=== PATIENT | female | born 1970 | race Caucasian/White ===

== ENCOUNTER 2019-08-02 15:44 | Outpatient (CLI) | payer MEDICARE, BC, SELFPAY ==
--- NOTE | 2019-08-02 16:04 | XR_ITS ---
WS: [id number] SHOULDER LEFT TECHNIQUE: 3 views of the left shoulder CLINICAL INFORMATION: PAIN IN LEFT SHOULDER COMPARISON: None. FINDINGS: Normal acromioclavicular joint. Normal glenohumeral joint. Acromion is normal in appearance. Normal g lenoid 6. No evidence of acute fracture dislocation. Postoperative changes lower cervical spine. XR/XR shoulder LT min 2V* [id number] IMPRESSION: Normal left shoulder.
--- NOTE | 2019-08-02 16:04 | XR_ITS ---
WS: [id number] SHOULDER RIGHT TECHNIQUE: 3 views of the right shoulder CLINICAL INFORMATION: PAIN IN RIGHT SHOULDER COMPARISON: None. FINDINGS: Normal acromioclavicular joint. Normal glenohumeral joint. Acromion is normal in appearance. Normal g lenoid. No evidence of acute fracture dislocation. Postoperative changes lower cervical spine. XR/XR shoulder RT min 2V* [id number] IMPRESSION: Normal right shoulder.
== END 2019-08-02 15:45 | disposition home or self-care (01) ==
LOC: WPI 15:50
PROVIDERS: Family Provider Family Medicine; PCP Family Medicine; Visit Provider Family Medicine
DX: M25.512 Pain in left shoulder (principal); M25.511 Pain in right shoulder
CPT/HCPCS: 73030

== ENCOUNTER 2020-03-27 17:22 | Emergency (ER) | payer MEDICARE, BC, SELFPAY ==
[2020-03-27] VITALS (7 sets, daily range): BP systolic 98–138; BP diastolic 66–76; PULSE 66–80; RESP 16–20; TEMP 36.6; O2SAT 96–98; BMI 26.5
--- NOTE | 2020-03-27 17:36 | W.ED.ABDPA2 ---
Documented by User: Gabriel Lees DO 03/30/20 06:16 HPI - Abdominal Pain General: Chief Complaint: Abdominal Pain Stated Complaint: ABD PAIN Time Seen by Provider: 03/27/20 17:25 History of Present Illness: HPI narrative: 50-year-old female comes in complaining of right flank pain that began suddenly 3 hours ago she denies any hematuria or dysuria she not had any fever sweats or chills there is been no respiratory symptoms she has known renal nephrolithiasis is never had any convert to a ureteral stone. She denies any vomiting diarrhea. She not been exposed anyone that she knows of with coverage has not had any respiratory symptoms MD elicited complaint: flank pain Quality: stabbing Radiation: suprapubic Migration to: no migration Exacerbating factors: nothing Relieving factors: nothing Associated Symptoms: Reports GI cramping; Denies coffee ground emesis, constipation, diarrhea, dyspepsia, dysuria, excessive flatus, fever(s), heartburn, hematochezia, hematuria, hematemesis, fecal incontinence, loose stools, melena, nausea, poor appetite, syncope and vomiting Review of Systems Const: Denies: fever(s) ENMT: Denies: throat pain, ear or mastoid pain, nasal discharge or nasal congestion Card: Denies: syncope Resp: Denies: dyspnea, productive cough or non-productive cough GI: Reports: GI cramping; Denies: nausea, vomiting, hematemesis, coffee ground emesis, heartburn, diarrhea, constipation, excessive flatus, fecal incontinence, hematochezia or melena : Denies: dysuria or hematuria Skin/Breast: Denies: rash or pruritus PFSH ED PFSH: Medical History (Updated 03/27/20 @ 20:43 by Alen Burciaga DO) Cervical stenosis of spinal canal Cervical vertebral fusion Chiari malformation Ectopic POTS (postural orthostatic tachycardia syndrome) Surgical History (Updated 03/27/20 @ 17:51 by Gabriel Lees DO) History of appendectomy Hx laparoscopic cholecystectomy Tubal ligation status Social History (Updated 03/27/20 @ 17:51 by Gabriel Lees DO) Smoking and tobacco status: never smoked Alcohol intake: current Alcohol intake frequency: 0-2 Drinks per Day Physical Exam Const: COMMON NORMALS: no acute distress GENERAL APPEARANCE: cooperative and comfortable ORIENTATION/CONSCIOUSNESS: Yes awake, Yes oriented to person, Yes oriented to place and Yes oriented to time HENMT: COMMON NORMALS: normocephalic, atraumatic and hearing grossly normal bilaterally HEAD & SCALP: normocephalic and atraumatic Eye: COMMON NORMALS: Equal, round and reactive pupils present, EOMs intact bilaterally, conjunctivae normal and no scleral icterus CONJUNCTIVA: Yes conjunctivae normal PUPIL: Yes Equal, round and reactive pupils present Neck/C-Spine: COMMON NORMALS: no JVD Resp: COMMON NORMALS: normal respiratory effort, No retractions, No use of accessory muscles and clear to auscultation bilaterally AUSCULTATION: clear to auscultation bilaterally Cardio: COMMON NORMALS: no JVD, regular rate, regular rhythm and No murmurs present (Cardio) RATE: regular rate RHYTHM: regular rhythm GI: COMMON NORMALS: Soft to palpation and No hepatosplenomegaly present AUSCULTATION: Yes normoactive bowel sounds PALPATION: Yes Soft to palpation, No Tenderness to palpation present (GI), No Guarding due to palpation present (GI) and Yes No hepatosplenomegaly present Extremity: COMMON NORMALS: normal to inspection, capillary refill normal, no clubbing, cyanosis or edema, no calf tenderness and no pedal edema Neuro: SENSORIUM/ORIENTATION: Yes oriented to person, Yes oriented to place and Yes oriented to time Skin: COMMON NORMALS: no rashes or lesions noted GENERAL SKIN EXAM: no rashes or lesions noted Course Vital Signs: Vital signs: Vital Signs Temperature 97.9 F 03/27/20 17:25 Pulse Rate 69 03/27/20 20:46 Respiratory Rate 16 03/27/20 20:46 Blood Pressure 116/70 03/27/20 20:46 Pulse Oximetry 96 03/27/20 20:46 MDM - Abdominal Pain MDM Narrative: Medical decision making narrative: Care turned over to Dr. Burciaga at change of shift please see his notes for final diagnosis and disposition Lab Data: Labs: Lab Results 03/27/20 03/27/20 03/27/20 Range/Units 18:00 18:00 19:43 WBC 6.4 (4.0-10.0) 10^3/ uL RBC 5.20 (4.1-5.3) 10^6/u L Hgb 15.9 H (11.5-15.3) g/dL Hct 47.6 H (37.0-47.0) % MCV 91.5 (81-99) fL MCH 30.6 (28.0-34.0) pg MCHC 33.4 (30.0-36.0) g/dL RDW 12.2 (12.1-15.1) % Plt Count 276 (130-400) 10^3/c mm MPV 10.4 (7.4-10.4) fL Neut % (Auto) 55.0 % Lymph % (Auto) 32.3 % [place] % (Auto) 8.1 % Eos % (Auto) 3.6 % Baso % (Auto) 0.8 % Neut # (Auto) 3.55 (1.8-7.7) 10^3/u L Lymph # (Auto) 2.1 (0.8-4.8) 10^3/u L [place] # (Auto) 0.5 (0.2-0.9) 10^3/u L Eos # (Auto) 0.2 (0.0-0.8) 10^3/u L Baso # (Auto) 0.1 (0.0-0.1) 10^3/u L Nucleated RBC % (a uto) 0 % Nucleated RBCs # 0.0 /100WBC Sodium 138 (136-145) mmol/L Potassium 3.8 (3.5-5.1) mmol/L Chloride 100 (98-107) mmol/L Carbon Dioxide 28 (22-29) mmol/L Anion Gap 13.8 (5-19) BUN 13 (6-20) mg/dL Creatinine 0.8 (0.5-0.9) mg/dL GFR Calculation 75.3 L (90-130) mL/min Glucose 126 H (65-115) mg/dL Calculated Osmolal ity 284 L (285-295) mOsm/k g Calcium 9.1 (8.5-10.5) mg/dL Total Bilirubin 0.4 (0.15-1.2) mg/dL AST 18 (0-32) U/L ALT 18 (0-33) U/L Alkaline Phosphata se 57 (35-105) IU/L Total Protein 7.8 (6.6-8.7) g/dL Albumin 4.8 (3.5-5.2) g/dL Globulin 3.0 (1.3-4.6) g/dL Lipase 35 (13-60) U/L Urine Color Yellow (Yellow) Urine Appearance Clear (CLEAR) Urine pH 6.5 (5-7) Ur Specific Gravit y 1.010 (1.005-1.030) Urine Protein Neg (Negative) Urine Glucose (UA) Norm (Normal) Urine Ketones Negative (Negative) Urine Blood Neg (Negative) Urine Nitrate Negative (Negative) Urine Bilirubin Neg (NEGATIVE) Urine Urobilinogen Norm (Negative) mg/dL Ur Leukocyte Urszula ase Negative (Negative) Discharge Plan Discharge Patient Disposition: Home Clinical Impression: Abdominal pain Qualifiers: Abdominal location: generalized Qualified Code(s): R10.84 - Generalized abdominal pain Condition: Stable Prescriptions: [place] 5-325 mg tablet 1 tab PO Q6H Qty: 10 RF: 0 ondansetron 4 mg film 4 mg PO DAILY PRN (Reason: nausea and vomiting) Qty: 10 RF: 0 No Action estradiol 0.075 mg/24 hr patch semiweekly See Rx Instructions .ROUTE .COMPLEX RF: 0 hydrocodone-acetaminophen 7.5-325 mg tablet 1 tab PO Q4H PRN (Reason: Pain) RF: 0 fluticasone propionate 50 mcg/actuation spray,suspension 1 spray INTRANASAL BID PRN (Reason: Allergy Symptoms) RF: 0 progesterone micronized 100 mg capsule 100 mg PO BEDTIME RF: 0 Vitamin C 1 tab PO DAILY RF: 0 Vitamin D3 1 tab PO DAILY RF: 0 Discharge Orders: Discharge Order (Routine); Ordered 03/27/20 Ordered By: Alen Burciaga Referrals: Aracely Song MD [Primary Care Provider] - 4-7 days Discharge Diet: Advance as tolerated and Clear Liquid Discharge Activity: Increase activity as tolerated Patient Instructions: Abdominal Pain (ED) Activity Restrictions/Additional Instructions: Return for worsening pain despite treatment, vomiting liquids or medications, fever greater than 100, other concerning symptoms. Discharge Date/Time: 03/27/20 21:03 Coding Level of Care Code ED Elementary Teacher for Chg Fwd Exam Comprehensive Documented by User: Alen Burciaga DO 03/28/20 02:52 HPI - Abdominal Pain General: Chief Complaint: Abdominal Pain Stated Complaint: ABD PAIN Time Seen by Provider: 03/27/20 17:25 PFSH ED PFSH: Medical History (Updated 03/27/20 @ 20:43 by Alen Burciaga DO) Cervical stenosis of spinal canal Cervical vertebral fusion Chiari malformation Ectopic POTS (postural orthostatic tachycardia syndrome) Surgical History (Updated 03/27/20 @ 17:51 by Gabriel Lees DO) History of appendectomy Hx laparoscopic cholecystectomy Tubal ligation status Social History (Updated 03/27/20 @ 17:51 by Gabriel Lees DO) Smoking and tobacco status: never smoked Alcohol intake: current Alcohol intake frequency: 0-2 Drinks per Day Course Vital Signs: Vital signs: Vital Signs Temperature 97.9 F 03/27/20 17:25 Pulse Rate 69 03/27/20 20:46 Respiratory Rate 16 03/27/20 20:46 Blood Pressure 116/70 03/27/20 20:46 Pulse Oximetry 96 03/27/20 20:46 MDM - Abdominal Pain MDM Narrative: Medical decision making narrative: 50-year-old female checked out to me by Dr. Carbajal. This lady has right flank pain. Her pain is improved currently. No fever. Her white blood cell count is 6.4. Her other labs are normal. Her CT shows a slightly dilated loop of 1 piece of small bowel in the left abdomen proximally. It is a nonspecific finding without mechanical obstruction. It is otherwise negative. Her urinalysis is negative for infection or hematuria. We will allow her home. Lab Data: Labs: Lab Results 03/27/20 03/27/20 03/27/20 Range/Units 18:00 18:00 19:43 WBC 6.4 (4.0-10.0) 10^3/ uL RBC 5.20 (4.1-5.3) 10^6/u L Hgb 15.9 H (11.5-15.3) g/dL Hct 47.6 H (37.0-47.0) % MCV 91.5 (81-99) fL MCH 30.6 (28.0-34.0) pg MCHC 33.4 (30.0-36.0) g/dL RDW 12.2 (12.1-15.1) % Plt Count 276 (130-400) 10^3/c mm MPV 10.4 (7.4-10.4) fL Neut % (Auto) 55.0 % Lymph % (Auto) 32.3 % [place] % (Auto) 8.1 % Eos % (Auto) 3.6 % Baso % (Auto) 0.8 % Neut # (Auto) 3.55 (1.8-7.7) 10^3/u L Lymph # (Auto) 2.1 (0.8-4.8) 10^3/u L [place] # (Auto) 0.5 (0.2-0.9) 10^3/u L Eos # (Auto) 0.2 (0.0-0.8) 10^3/u L Baso # (Auto) 0.1 (0.0-0.1) 10^3/u L Nucleated RBC % (a uto) 0 % Nucleated RBCs # 0.0 /100WBC Sodium 138 (136-145) mmol/L Potassium 3.8 (3.5-5.1) mmol/L Chloride 100 (98-107) mmol/L Carbon Dioxide 28 (22-29) mmol/L Anion Gap 13.8 (5-19) BUN 13 (6-20) mg/dL Creatinine 0.8 (0.5-0.9) mg/dL GFR Calculation 75.3 L (90-130) mL/min Glucose 126 H (65-115) mg/dL Calculated Osmolal ity 284 L (285-295) mOsm/k g Calcium 9.1 (8.5-10.5) mg/dL Total Bilirubin 0.4 (0.15-1.2) mg/dL AST 18 (0-32) U/L ALT 18 (0-33) U/L Alkaline Phosphata se 57 (35-105) IU/L Total Protein 7.8 (6.6-8.7) g/dL Albumin 4.8 (3.5-5.2) g/dL Globulin 3.0 (1.3-4.6) g/dL Lipase 35 (13-60) U/L Urine Color Yellow (Yellow) Urine Appearance Clear (CLEAR) Urine pH 6.5 (5-7) Ur Specific Gravit y 1.010 (1.005-1.030) Urine Protein Neg (Negative) Urine Glucose (UA) Norm (Normal) Urine Ketones Negative (Negative) Urine Blood Neg (Negative) Urine Nitrate Negative (Negative) Urine Bilirubin Neg (NEGATIVE) Urine Urobilinogen Norm (Negative) mg/dL Ur Leukocyte Urszula ase Negative (Negative) Discharge Plan Discharge Patient Disposition: Home Clinical Impression: Abdominal pain Qualifiers: Abdominal location: generalized Qualified Code(s): R10.84 - Generalized abdominal pain Condition: Stable Prescriptions: [place] 5-325 mg tablet 1 tab PO Q6H Qty: 10 RF: 0 ondansetron 4 mg film 4 mg PO DAILY PRN (Reason: nausea and vomiting) Qty: 10 RF: 0 No Action estradiol 0.075 mg/24 hr patch semiweekly See Rx Instructions .ROUTE .COMPLEX RF: 0 hydrocodone-acetaminophen 7.5-325 mg tablet 1 tab PO Q4H PRN (Reason: Pain) RF: 0 fluticasone propionate 50 mcg/actuation spray,suspension 1 spray INTRANASAL BID PRN (Reason: Allergy Symptoms) RF: 0 progesterone micronized 100 mg capsule 100 mg PO BEDTIME RF: 0 Vitamin C 1 tab PO DAILY RF: 0 Vitamin D3 1 tab PO DAILY RF: 0 Discharge Orders: Discharge Order (Routine); Ordered 03/27/20 Ordered By: Alen Burciaga Referrals: Aracely Song MD [Primary Care Provider] - 4-7 days Discharge Diet: Advance as tolerated and Clear Liquid Discharge Activity: Increase activity as tolerated Patient Instructions: Abdominal Pain (ED) Activity Restrictions/Additional Instructions: Return for worsening pain despite treatment, vomiting liquids or medications, fever greater than 100, other concerning symptoms. Discharge Date/Time: 03/27/20 21:03 Coding Level of Care Code ED Elementary Teacher for Lora Fwd Exam Comprehensive
[2020-03-27 18:08] LABS: Basophils # 0.1 10^3/uL (0.0-0.1); Basophils % 0.8 %; Eosinophils # 0.2 10^3/uL (0.0-0.8); Eosinophils % 3.6 %; Hematocrit 47.6 % (37.0-47.0); Hemoglobin 15.9 g/dL (11.5-15.3); Lymphocytes # 2.1 10^3/uL (0.8-4.8); Lymphocytes % 32.3 %; Mean Corpuscular HGB Conc 33.4 g/dL (30.0-36.0); Mean Corpuscular Hemoglobin 30.6 pg (28.0-34.0); Mean Corpuscular Volume 91.5 fL (81-99); Mean Platelet Volume 10.4 fL (7.4-10.4); Monocytes # 0.5 10^3/uL (0.2-0.9); Monocytes % 8.1 %; Neutrophils # 3.55 10^3/uL (1.8-7.7); Nucleated Red Blood Cells % 0 %; Platelet Count 276 10^3/cmm (130-400); Red Cell Distribution Width 12.2 % (12.1-15.1); White Blood Count 6.4 10^3/uL (4.0-10.0)
[2020-03-27] MEDS: ondansetron 2 mg/ML SDV 2 mL 4 MG IVP (18:10)
[2020-03-27] MEDS: morphine 4 mg/mL SDV 1 mL 6 MG IVP (18:11)
--- NOTE | 2020-03-27 18:21 | CTR_ITS ---
PROCEDURE INFORMATION: Exam: CT Abdomen And Pelvis Without Contrast Exam date and time: 03/27/2020 6:26 PM Age: 50 years old Clinical indication: Abdominal pain; Other: Bilat; Prior surgery; Surgery date: 6+ months; Surgery type: Gb, appy, tubal; Patient HX: C/O b flank pain TECHNIQUE: Imaging protocol: Computed tomography of the abdomen and pelvis without contrast. Radiation optimization: All CT scans at this facility use at least one of these dose optimization techniques: automated exposure control; mA and/or kV adjustment per patient size (includes targeted exams where dose is matched to clinical indication); or iterative reconstruction. COMPARISON: CT Abdomen/Pelvis Renal [id number] 01/07/2015 2:11 PM RADIATION DOSE METRICS: Total DLP (mGy-cm): 976.85 FINDINGS: Liver: Normal. No mass. Gallbladder and bile ducts: Prior cholecystectomy. Pancreas: Normal. No ductal dilation. Spleen: Normal. No splenomegaly. Adrenals: Normal. No mass. Kidneys and ureters: Small 2.5 mm left renal nonobstructing lower pole stone. No ureteral stone or hydronephrosis. Stomach and bowel: 2.7 cm diameter fluid dilated loop of proximal small bowel in the left abdomen, nonspecific (series 3, axial image 88). Sigmoid colon contain several diverticula. No evidence for acute diverticulitis. Appendix: Normal retrocecal appendix. Intraperitoneal space: Unremarkable. No free air. No significant fluid collection. Vasculature: Unremarkable. No abdominal aortic aneurysm. Lymph nodes: Unremarkable. No enlarged lymph nodes. Bladder: Unremarkable as visualized. Reproductive: Unremarkable as visualized. Bones/joints: Unremarkable. No acute fracture. Soft tissues: Unremarkable. CT/CT kidney stone [id number] IMPRESSION: 1.) No acute process evident. 2.) Small left renal lower pole nonobstructing stone. 3.) Prior cholecystectomy. Radiation Dose CTDIVOL = (mGy): DLP = 976.85 (mGy-cm)
[2020-03-27 18:25] LABS: Alanine Aminotransferase 18 U/L (0-33); Albumin Level 4.8 g/dL (3.5-5.2); Alkaline Phosphatase 57 IU/L (35-105); Anion Gap 13.8 (5-19); Aspartate Amino Transferase 18 U/L (0-32); Blood Urea Nitrogen 13 mg/dL (6-20); Calcium 9.1 mg/dL (8.5-10.5); Carbon Dioxide 28 mmol/L (22-29); Chloride 100 mmol/L (98-107); Glomerular Filtration Rate 75.3 mL/min (90-130); Glucose 126 mg/dL (65-115); Lipase 35 U/L (13-60); Osmolality Calculated 284 mOsm/kg (285-295); Potassium 3.8 mmol/L (3.5-5.1); Sodium 138 mmol/L (136-145); Total Bilirubin 0.4 mg/dL (0.15-1.2); Total Protein 7.8 g/dL (6.6-8.7)
[2020-03-27] MEDS: ketorolac 30 mg/mL INJ IVP (19:32)
[2020-03-27] MEDS: morphine 4 mg/mL SDV 1 mL IVP (19:32)
[2020-03-27 20:10] LABS: Add Urine Microscopic? NO
[2020-03-27 20:27] LABS: Bilirubin Urine Neg (NEGATIVE); Blood Urine Neg (Negative); Glucose Urine UA Norm (Normal); Ketones Urine Negative (Negative); Leukocyte Esterase Urine Negative (Negative); Nitrate Urine Negative (Negative); Protein Urine Neg (Negative); Urine Appearance Clear (CLEAR); Urine Color Yellow (Yellow); Urobilinogen Urine Norm (Negative); pH Urine 6.5 (5-7)
== END 2020-03-27 21:03 | disposition home or self-care (01) ==
PROVIDERS: Family Medicine; Emergency Provider Emergency Medicine; PCP Family Medicine
DX: R10.84 Generalized abdominal pain (principal)
CPT/HCPCS: 12345; 74176; 80053; 81003; 83690; 85025; 96374; 96375; 96376; 99283; J1885; J2270; J2405

== ENCOUNTER 2024-03-18 14:00 | Outpatient (CLI) | payer MEDICARE, BC, SELFPAY ==
--- NOTE | 2024-03-18 14:21 | MR_ITS ---
WS: [id number] MRI LEFT KNEE NONCONTRAST TECHNIQUE: Axial PD, coronal PD fat sat, coronal PD, sagittal PD, and sagittal PD fat-sat images obta ined. CLINICAL INFORMATION: PAIN COMPARISON: None. FINDINGS: Distal quadriceps and patella tendons are intact. Hypertrophic patella. Small suprapatellar effusion. Grade III chondromalacia patella advanced for a patient of this age. High riding patella. Medial and lateral patellar retinaculum appear intact. Slight lateral subluxation of the patella some of which may be due to positioning. Recommend correlation for patellar instability. Somewhat shallow appearing trochlear groove. Chronic thinning of the medial and lateral meniscus which appears intact. No acute appearing meniscal tears. Medial and lateral collateral ligaments appear intact. Slight peripheral extrusion of the med ial and lateral meniscus. Head of the fibula appears normal. Grade II chondromalacia medial and later al joint compartments. MR/MR knee LT wo con* [id number] IMPRESSION: 1. ACL and PCL appear intact. 2. Grade III chondromalacia patella advanced for a patient this age with high riding patella. Slight lateral subluxation of the patella with somewhat shallow trochlear groove. Recommend correlation for patellar instability. Small suprap atellar effusion. 3. Chronic thinning of the medial lateral meniscus. No acute appearing menisca l tears. 4. No other acute findings. Outbridge grading: grade III: partial-thickness cartilage loss with focal ulcer ation
== END 2024-03-18 14:01 | disposition home or self-care (01) ==
LOC: RAD 14:00
PROVIDERS: PCP Family Medicine; Visit Provider Family Medicine
DX: M22.42 Chondromalacia patellae, left knee (principal)
CPT/HCPCS: 73721

== ENCOUNTER 2024-11-01 14:07 | Outpatient (RCR) | payer MEDICARE, BC, SELFPAY | END 2024-11-27 23:59 | disposition home or self-care (01) | LOC: SPT 14:07 | PROVIDERS: Visit Provider Orthopaedic Surgery | DX: M17.12 Unilateral primary osteoarthritis, left knee (principal) | CPT/HCPCS: 97110; 97112; 97161; G0283 ==

== ENCOUNTER 2024-11-28 05:00 | Outpatient (RCR) | payer MEDICARE, BC, SELFPAY | END 2024-12-28 23:59 | disposition home or self-care (01) | LOC: SPT 05:00 | PROVIDERS: Visit Provider Orthopaedic Surgery | DX: M17.12 Unilateral primary osteoarthritis, left knee (principal) | CPT/HCPCS: 97110; 97164 ==